=== PATIENT | female | born 1970 | race African-American/Black ===

== ENCOUNTER 2018-03-02 09:30 | Emergency (ER) | payer OTHER ==
[2018-03-02] MEDS ORDERED: ONDANSETRON DISINTEGRATING 4 MG TAB ONE (09:40)
--- NOTE | 2018-03-02 09:42 | EDPHY ---
H & P Time Seen by Provider: 03/02/18 09:30 HPI/ROS: CHIEF COMPLAINT: Vomiting and diarrhea HISTORY OF PRESENT ILLNESS: This is a 47-year-old female in general good health who presents with 10 hr of nausea, vomiting, abdominal cramping, and diarrhea. She has diffuse abdominal pain that is crampy in nature. It waxes and wanes but never goes away completely. Seems to be somewhat worse on the right upper abdomen. She has not seen blood in her stool. She has had 6 watery stools. REVIEW OF SYSTEMS: A ten system review of systems was performed and is negative with the exception of the items mentioned in the HPI. Past medical history: Ovarian cysts Past surgical history: Bilateral surgeries for de Quervain tenosynovitis, hysterectomy. Social history: She quit smoking 8 months ago. She drinks 2 alcoholic beverages weekly on average. No illicits. General Appearance: Alert. Vital signs reviewed. Afebrile. Eyes: Pupils equal and round, no conjunctival injection, no discharge. Anicteric. ENT, Mouth: Mucous membranes are moist, no oropharyngeal erythema or edema. Neck: No lymphadenopathy, supple. Respiratory: Lungs are clear to auscultation; no wheezes, rales, or rhonchi. Cardiovascular: Regular rate and rhythm; no murmur, rub, or gallop. Gastrointestinal: Abdomen is soft with mild diffuse tenderness, small worse in the right upper quadrant, no guarding, no masses or organomegaly, bowel sounds normal. Skin: Warm and dry, no rashes on exposed skin, normal color. Back: Nontender to palpation over the thoracolumbar spine. No CVAT. Extremities: No lower extremity edema, no calf tenderness or swelling. Neurological: Alert and oriented. Moving all four extremities easily and equally. Psychiatric: Normal affect. Constitutional: Initial Vital Signs Temperature (C) 36.9 C 03/02/18 09:40 Heart Rate 82 03/02/18 09:40 Respiratory Rate 16 03/02/18 09:40 Blood Pressure 147/75 H 03/02/18 09:40 O2 Sat (%) 98 03/02/18 09:40 O2 Delivery Mode Room Air Allergies/Adverse Reactions: No Known Allergies Allergy (Unverified 03/21/13 09:42) Home Medications: Medication Instructions Recorded Ondansetron Odt [Zofran Odt 4 mg 4 mg PO Q4 PRN #10 tab 03/02/18 (RX)] Medical Decision Making ED Course/Re-evaluation: Nausea, vomiting, and diarrhea suggestive of gastroenteritis. She will be rehydrated and given antiemetics. She is noted to have diffuse abdominal pain, worse in the right upper quadrant. She will be given fentanyl IV for pain relief. I am also concerned about her gallbladder and I am ordering LFTs and lipase. She was re-evaluated at 10:30 a.m., after receiving IV Zofran and IV fentanyl. She is feeling significantly better. She has not had vomiting or diarrhea since receiving these medications. She was vomiting on arrival and was not able to retain a Zofran 0 DT. 11:00 a.m.. Patient complains of return of nausea. Will try Phenergan 12.5 mg IV and a 2nd L IV fluid. 12 noon. Nausea resolved. Took ice chips without difficulty. Feels well enough to return home. Labs reviewed. WNL. Prior to discharge abdomen re-examined--soft and mildly diffusely tender, no peritoneal signs. Likely viral gastroenteritis. Differential Diagnosis: Abdominal pain including but not limited to appendicitis, cholecystitis, gastroenteritis, gastritis and urinary tract infection. - Data Points Laboratory Results: Laboratory Results 03/02/18 09:49 03/02/18 03/02/18 03/02/18 10:24 09:49 09:49 WBC 6.60 10^3/uL 10^3/uL (3.80-9.50) RBC 4.82 10^6/uL 10^6/uL (4.18-5.33) Hgb 15.2 g/dL g/dL (12.6-16.3) POC Hgb 15.3 gm/dL gm/dL (12.6-16.3) Hct 45.0 % % (38.0-47.0) POC Hct 45 % % (38-47) MCV 93.4 fL fL (81.5-99.8) MCH 31.5 pg pg (27.9-34.1) MCHC 33.8 g/dL g/dL (32.4-36.7) RDW 12.1 % % (11.5-15.2) Plt Count 298 10^3/uL 10^3/uL (150-400) MPV 10.1 fL fL (8.7-11.7) Neut % (Auto) 72.0 % % (39.3-74.2) Lymph % (Auto) 20.0 % % (15.0-45.0) Island % (Auto) 6.1 % % (4.5-13.0) Eos % (Auto) 0.3 % L % (0.6-7.6) Baso % (Auto) 0.8 % % (0.3-1.7) Nucleat RBC Rel Count 0.0 % % (0.0-0.2) Absolute Neuts (auto) 4.76 10^3/uL 10^3/uL (1.70-6.50) Absolute Lymphs (auto) 1.32 10^3/uL 10^3/uL (1.00-3.00) Absolute Monos (auto) 0.40 10^3/uL 10^3/uL (0.30-0.80) Absolute Eos (auto) 0.02 10^3/uL L 10^3/uL (0.03-0.40) Absolute Basos (auto) 0.05 10^3/uL 10^3/uL (0.02-0.10) Absolute Nucleated RBC 0.00 10^3/uL 10^3/uL (0-0.01) Immature Gran % 0.8 % % (0.0-1.1) Immature Gran # 0.05 10^3/uL 10^3/uL (0.00-0.10) POC Sodium 143 mEq/L mEq/L (135-145) POC Potassium 3.3 mEq/L mEq/L (3.3-5.0) POC Chloride 109 mEq/L mEq/L (97-110) POC BUN 7 mg/dL mg/dL (7-23) POC Creatinine 0.9 mg/dL mg/dL (0.6-1.0) POC Glucose 103 mg/dL H mg/dL (70-100) Total Bilirubin 0.8 mg/dL mg/dL (0.1-1.4) Conjugated Bilirubin 0.3 mg/dL mg/dL (0.0-0.5) Unconjugated Bilirubin 0.5 mg/dL mg/dL (0.0-1.1) AST 21 IU/L IU/L (14-46) ALT 26 IU/L IU/L (9-52) Alkaline Phosphatase 75 IU/L IU/L (38-126) Total Protein 7.8 g/dL g/dL (6.3-8.2) Albumin 4.6 g/dL g/dL (3.5-5.0) Lipase 106 IU/L IU/L (23-300) Medications Given: Discontinued Medications Fentanyl (Sublimaze) 75 mcg IVP EDNOW ONE Stop: 03/02/18 10:01 Last Admin: 03/02/18 09:58 Dose: 100 mcg Sodium Chloride (Ns) 1,000 mls @ 0 mls/hr IV ONCE ONE PRN Reason: Wide Open Stop: 03/02/18 10:01 Last Admin: 03/02/18 09:50 Dose: 1,000 mls Sodium Chloride (Ns) 1,000 mls @ 0 mls/hr IV EDNOW ONE; Wide Open PRN Reason: Protocol Stop: 03/02/18 11:12 Last Admin: 03/02/18 11:19 Dose: 1,000 mls Ondansetron HCl (Zofran) 4 mg IVP EDNOW ONE Stop: 03/02/18 10:00 Last Admin: 03/02/18 09:55 Dose: 4 mg Ondansetron HCl (Zofran Odt) 4 mg PO EDNOW ONE Stop: 03/02/18 10:00 Last Admin: 03/02/18 09:40 Dose: 4 mg Promethazine HCl (Phenergan) 12.5 mg IVP EDNOW ONE Stop: 03/02/18 11:12 Last Admin: 03/02/18 11:20 Dose: 12.5 mg Point of Care Test Results: Chemistry 03/02/18 10:24 POC Sodium 143 mEq/L mEq/L (135-145) POC Potassium 3.3 mEq/L mEq/L (3.3-5.0) POC Chloride 109 mEq/L mEq/L (97-110) POC BUN 7 mg/dL mg/dL (7-23) POC Creatinine 0.9 mg/dL mg/dL (0.6-1.0) POC Glucose 103 mg/dL H mg/dL (70-100) ISTAT H&H 03/02/18 10:24 POC Hgb 15.3 gm/dL gm/dL (12.6-16.3) POC Hct 45 % % (38-47) Departure - Departure Disposition: Home, Routine, Self-Care Clinical Impression: Gastroenteritis Condition: Good Instructions: Ondansetron (By mouth), Gastroenteritis (ED) Referrals: Ananda Meredith MD [Medical Doctor] - As per Instructions Prescriptions: Ondansetron Odt [Zofran Odt 4 mg (RX)] 4 mg PO Q4 PRN #10 tab PRN Reason: nausea
[2018-03-02] MEDS ORDERED: ONDANSETRON 4 MG/2 ML VIAL IVP ONE (09:59)
[2018-03-02] MEDS ORDERED: ONDANSETRON DISINTEGRATING 4 MG TAB PO ONE (09:59)
[2018-03-02] MEDS ORDERED: NS 1,000 ML IV ONE ×2 (10:00→11:11)
[2018-03-02] MEDS ORDERED: fentaNYL 100 MCG/2 ML INJ IVP ONE (10:00)
[2018-03-02] MEDS ORDERED: PROMETHAZINE HCL 25 MG/ML INJ IVP ONE (11:11)
[2018-03-02 11:59] LABS: PLATELET COUNT 298 10^3/uL (150-400)
[2018-03-02 12:46] VITALS: BP 139/74
== END 2018-03-02 12:45 | disposition home or self-care (01) ==
LOC: CED 09:30
DX: K52.9 Noninfective gastroenteritis and colitis, unspecified (principal); E86.9 Volume depletion, unspecified
CPT/HCPCS: 80076-PO; 82435-PO; 82565-PO; 82947-PO; 84132-PO; 84295-PO; 84520-PO; 85014-PO; 96374; J2405; J2550; J3010

== ENCOUNTER → 2018-07-04 | Outpatient (CLI) | payer OTHER | LOC: BRMIMAGING 13:35 | PROVIDERS: ATTEND Obstetrics & Gynecology | DX: Z12.31 Encounter for screening mammogram for malignant neoplasm of breast (principal); Z80.3 Family history of malignant neoplasm of breast ==

== ENCOUNTER → 2018-08-21 | Outpatient (CLI) | payer OTHER | LOC: FIMAGING 11:33 ==